=== PATIENT | male | born 1975 | race Caucasian/White ===

== ENCOUNTER 2019-02-15 14:33 | Emergency (ER) | payer BC, MEDICAID ==
[2019-02-15 14:35] VITALS: BMI 25.1
[2019-02-15 14:52] VITALS: TEMP 98
--- NOTE | 2019-02-15 15:15 | ED PDOC ---
Arrival/HPI <Phil Hair - Last Filed: 02/15/19 15:16> - General Historian: Patient - History of Present Illness Narrative History of Present Illness (Text): 18:16 43 y/o male with PMH of alcohol abuse presents to the ED [facility] for evaluation of alcohol intoxication. Pt was reportedly in [employer] [place] [place] when he stumbled and fell to the ground. Admits to alcohol use today. (+) ETOH on breath. Pt arrives agitated and combative, alert. Daughter is in police custody to be picked up by . Pt is not under arrest. Denies any physical complaints. Denies SI/HI/hallucinations, drug use, chest pain, SOB, abdominal pain, or any other associated complaints. HPI and ROS limited by intoxicated state. <Eloise Mccormack - Last Filed: 02/16/19 14:15> - General Chief Complaint: Alcohol Ingestion Time Seen by Provider: 02/15/19 14:36 Past Medical History - Provider Review Nursing Documentation Reviewed: Yes - Infectious Disease Hx of Infectious Diseases: None - Tetanus Immunization Tetanus Immunization: Unknown - Past Medical History Past Medical History: No Previous - Cardiac Hx Cardiac Disorders: No - Pulmonary Hx Respiratory Disorders: No - Neurological Hx Migraine: Yes - HEENT Hx HEENT Disorder: No - Renal Hx Renal Disorder: No - Endocrine/Metabolic Other/Comment: BORDERLINE DM, not officially dx - Hematological/Oncological Hx Blood Disorders: No - Integumentary Hx Dermatological Disorder: No - Musculoskeletal/Rheumatological Hx Musculoskeletal Disorders: Yes Hx Back Pain: Yes - Gastrointestinal Hx Gastrointestinal Disorders: No - Genitourinary/Gynecological Hx Genitourinary Disorders: No - Psychiatric Hx Psychophysiologic Disorder: No Hx Depression: No Hx Emotional Abuse: No Hx Physical Abuse: No Hx Substance Use: No - Surgical History Hx Tonsillectomy: Yes - Anesthesia Hx Anesthesia: Yes Hx Anesthesia Reactions: No Hx Malignant Hyperthermia: No - Suicidal Assessment Feels Threatened In Home Enviroment: No <Eloise Mccormack - Last Filed: 02/16/19 14:15> Family/Social History - Physician Review Nursing Documentation Reviewed: Yes Family/Social History: No Known Family HX Smoking Status: Former Smoker Hx Alcohol Use: Yes Hx Substance Use: No Hx Substance Use Treatment: No <Eloise Mccormack - Last Filed: 02/16/19 14:15> Allergies/Home Meds <Phil Hair - Last Filed: 02/15/19 15:16> <Eloise Mccormack - Last Filed: 02/16/19 14:15> Allergies/Adverse Reactions: Allergies No Known Allergies Allergy (Verified 02/15/19 14:36) Review of Systems - Review of Systems Systems not reviewed;Unavailable: Intoxicated Constitutional: Normal. absent: Fevers Eyes: Normal. absent: Vision Changes ENT: Normal. absent: Sore Throat, Sinus Congestion Respiratory: Normal. absent: SOB, Cough Cardiovascular: Normal. absent: Chest Pain, Palpitations Gastrointestinal: Normal. absent: Abdominal Pain, Nausea, Vomiting Genitourinary Male: Normal. absent: Dysuria, Frequency Musculoskeletal: Normal. absent: Back Pain Skin: Normal. absent: Rash Neurological: Normal. absent: Headache, Dizziness <Eloise Mccormack - Last Filed: 02/16/19 14:15> Physical Exam Vital Signs Temp Pulse Resp BP Pulse Ox 02/15/19 14:51 98.0 F 108 H 22 124/78 98 <Phil Hair - Last Filed: 02/15/19 15:16> Vital Signs Reviewed: Yes Vital Signs Temp Pulse Resp BP Pulse Ox 02/15/19 14:51 98.0 F 108 H 22 124/78 98 Temperature: Afebrile Blood Pressure: Normal Pulse: Tachycardic Respiratory Rate: Normal Appearance: Positive for: Well-Appearing, Non-Toxic, Comfortable Pain Distress: None Mental Status: Positive for: other (Intoxicated) - Systems Exam Head: Present: Atraumatic, Normocephalic Pupils: Present: PERRL Extroacular Muscles: Present: EOMI Conjunctiva: Present: Normal Mouth: Present: Moist Mucous Membranes Neck: Present: Normal Range of Motion Respiratory/Chest: Present: Clear to Auscultation, Good Air Exchange. No: Respiratory Distress, Accessory Muscle Use Cardiovascular: Present: Regular Rate and Rhythm, Normal S1, S2, Peripheal Pulses Present Abdomen: No: Tenderness Back: Present: Normal Inspection Upper Extremity: Present: Normal Inspection, Normal ROM Lower Extremity: Present: Normal Inspection, Normal ROM Neurological: Present: Motor Func Grossly Intact Skin: Present: Warm, Dry, Normal Color. No: Rashes Psychiatric: Present: Agitated, Intoxicated. No: Suicidal Ideation, Homicidal Ideation <Eloise Mccormack - Last Filed: 02/16/19 14:15> Medical Decision Making ED Course and Treatment: 02/15/19 15:17 This patients severe and persistent agitated state is preventing me from asses sing the patient to determine if a serious underlying medical condition exists. The patient's behavior is creating an unsafe situation and placing himself, staff, and other patients at risk. The patient is: (+) verbally abusive and threatening to staff; apparently under the influence of an illicit substance(s), uncooperative and unable to comprehend his/her situation or make informed choices regarding his/her own health. Non-pharmacologic approaches, including verbal de-escalation and reducing environmental stimulation, were attempted but unsuccessful. In an attempt to develop a provisional diagnosis of the most likely cause of this patients agitated state, I have categorized the patient's condition as follows: agitation due to intoxication: F[employer] stimulant suspected. Oral pharmacotherapy was offered to the patient in an effort to calm the patient, permit an accurate assessment and allow the patient to participate in his/her own treatment plan, but the patient was uncooperative, refused, and did not consent to oral therapy so the parenteral route was utilized. Patient sedated with haldol and ativan under my supervision. The patient was reassessed by me 15 minutes after medication administration. Patient re-assessed and found to be with resolved agitation, sleeping comfortably, with stable vitals. In summary, pharmacologic intervention targeted at this patients underlying illne ss was successful in alleviating agitation, facilitating an accurate assessment and ensuring safety for the patient, staff and others. - RAD Interpretation Radiology Orders: 02/15/19 15:15 CERVICAL SPINE W/O CONTRAST [CT] Stat HEAD W/O CONTRAST [CT] Stat - Medication Orders Current Medication Orders: Discontinued Medications Haloperidol Lactate (Haldol) 5 mg IM STAT STA; Protocol Stop: 02/15/19 15:12 Lorazepam (Ativan) 2 mg IM ONCE ONE; Protocol Stop: 02/15/19 15:13 <Phil Hair - Last Filed: 02/15/19 15:16> ED Course and Treatment: 15:10 Patient's is here, states she does not want to bring pt home intoxicated. Will obtain bloodwork, EKG, and Head CT. 18:59 CT Head negative for intracranial abnormality CT Cervical spine negative Bloodwork reviewed, mild hypokalemia repleted with KDur, otherwise unremarkable. 19:18 Patient much more alert. States that today was an "isolated incident" Patient to be signed out to night team pending sobriety and re-evaluation. - Lab Interpretations Lab Results: 02/15/19 16:32 02/15/19 16:32 Lab Results 02/15/19 16:32: Alcohol, Quantitative 290 H 02/15/19 16:32: Salicylates < 1 L, Acetaminophen < 10.0 L 02/15/19 16:32: Sodium 141, Potassium 3.4 L, Chloride 102, Carbon Dioxide 22, Anion Gap 20, BUN 13, Creatinine 0.8, Est GFR ( Amer) > 60, Est GFR (Non- Af Amer) > 60, Random Glucose 95, Calcium 9.4, Total Bilirubin 1.3, AST 32, ALT 22, Alkaline Phosphatase 99, Troponin I < 0.01, Total Protein 8.6 H, Albumin 4.8, Globulin 3.8, Albumin/Globulin Ratio 1.3 02/15/19 16:32: PT 12.8 H, INR 1.15, APTT 36.0 02/15/19 16:32: WBC 11.7 H, RBC 5.47, Hgb 15.9, Hct 47.2, MCV 86.3, MCH 29.1, MCHC 33.7, RDW 13.5, Plt Count 259, MPV 9.6, Neut % (Auto) 67.1, Lymph % (Auto) 28.3, Routt % (Auto) 3.9, Eos % (Auto) 0.5 L, Baso % (Auto) 0.2, Lymph # (Auto) 3.3, Routt # (Auto) 0.5, Eos # (Auto) 0.1, Baso # (Auto) 0.02, Absolute Neuts (auto) 7.83 H I have reviewed the lab results: Yes - RAD Interpretation Narrative RAD Interpretations (Text): 02/15/19 19:08 CT Head: FINDINGS: HEMORRHAGE: No intracranial hemorrhage. BRAIN: No mass effect or edema. No atrophy or chronic microvascular ischemic changes. VENTRICLES: Unremarkable. No hydrocephalus. CALVARIUM: Unremarkable. PARANASAL SINUSES: Unremarkable as visualized. No significant inflammatory changes. MASTOID AIR CELLS: Unremarkable as visualized. No inflammatory changes. OTHER FINDINGS: High posterior left parietal scalp contusion. No adjacent calvarial or intracranial detected. IMPRESSION: No acute intracranial abnormalities. No significant findings to account for the clinical presentation. High left parietal scalp contusion. CT Cervical Spine: FINDINGS: VERTEBRAE: No fracture. Normal alignment. No destructive bony lesion. DISCS/SPINAL CANAL/NEURAL FORAMINA: No significant central canal or neural foraminal stenosis. Discs heights are grossly preserved. PARASPINAL SOFT TISSUES: Unremarkable. OTHER FINDINGS: None. IMPRESSION: Unremarkable CT of the cervical spine. Laundry Technician: Radiologist - EKG Interpretation EKG Interpretation (Text): Rate 81; NSR, Prolonged QT; No STEMI; Nonspecific ST/T wave changes Interpreted by ED Physician: Yes Type: 12 lead EKG - Medication Orders Current Medication Orders: Discontinued Medications Ziprasidone (Geodon Inj) 20 mg IM STAT STA; Protocol Stop: 02/15/19 14:52 - Transfer of Care Patient signed out to Dr:: Nate Other: Clinical Sobriety, Reassessment and Disposition <Eloise Mccormack - Last Filed: 02/16/19 14:15> Disposition/Present on Arrival <Phil Hair - Last Filed: 02/15/19 15:16> - Present on Arrival Any Indicators Present on Arrival: No History of DVT/PE: No History of Uncontrolled Diabetes: No Urinary Catheter: No History of Decub. Ulcer: No History Surgical Site Infection Following: None - Disposition Have Diagnosis and Disposition been Completed?: No Disposition Time: 20:00 <Eloise Mccormack - Last Filed: 02/16/19 14:15> - Disposition Diagnosis: Alcohol abuse, Fall Condition: STABLE
[2019-02-15 16:47] LABS: ACETAMINOPHEN < 10.0 ug/ml (10.0-20.0); SALICYLATE < 1 mg/dL (2.0-20.0)
[2019-02-15 16:48] LABS: ALB/GLOB RATIO 1.3 (1.1-1.8); ALBUMIN 4.8 g/dL (3.0-4.8); ALT/SGPT 22 U/L (7-56); AST/SGOT 32 U/L (17-59); BLOOD UREA NITROGEN 13 mg/dL (7-21); CALCIUM 9.4 mg/dL (8.4-10.5); GFR NON-AFRICAN AMERICAN > 60
[2019-02-15 16:59] LABS: TROPONIN I < 0.01 ng/mL
[2019-02-15 17:18] LABS: BASO # 0.02 K/mm3 (0.0-2.0); BASO % 0.2 % (0.0-3.0); EOS # 0.1 (0.0-0.7); EOS % 0.5 % (1.5-5.0); HEMOGLOBIN 15.9 g/dL (14.0-18.0); LYMPH # 3.3 (1.2-3.4); LYMPH % 28.3 % (22.0-35.0); MEAN CELL VOLUME 86.3 fl (80.0-105.0); MEAN CORPUSCULAR HEMOGLOBIN 29.1 pg (25.0-35.0); MEAN CORPUSCULAR HGB CONC 33.7 g/dl (31.0-37.0); MEAN PLATELET VOLUME 9.6 fl (7.0-11.0); MONO # 0.5 (0.1-0.6); MONO % 3.9 % (1.0-6.0); RBC 5.47 10^6/uL (3.5-6.1); RED CELL DISTRIBUTION WIDTH 13.5 % (11.5-14.5); WHITE BLOOD COUNT 11.7 10^3/uL (4.5-11.0)
[2019-02-15 17:22] LABS: INR 1.15; PROTHROMBIN TIME 12.8 SECONDS (9.4-12.5)
--- NOTE | 2019-02-15 18:58 | CT ---
Date of service: 02/15/2019 PROCEDURE: CT HEAD WITHOUT CONTRAST. HISTORY: headache COMPARISON: None available. TECHNIQUE: Axial computed tomography images were obtained through the head/brain without intravenous contrast. Supplemental Coronal and Sagittal projections created and reviewed. Radiation dose: Total exam DLP = 900.96 MGy-cm. This CT exam was performed using one or more of the following dose reduction techniques: Automated exposure control, adjustment of the mA and/or kV according to patient size, and/or use of iterative reconstruction technique. FINDINGS: HEMORRHAGE: No intracranial hemorrhage. BRAIN: No mass effect or edema. No atrophy or chronic microvascular ischemic changes. VENTRICLES: Unremarkable. No hydrocephalus. CALVARIUM: Unremarkable. PARANASAL SINUSES: Unremarkable as visualized. No significant inflammatory changes. MASTOID AIR CELLS: Unremarkable as visualized. No inflammatory changes. OTHER FINDINGS: High posterior left parietal scalp contusion. No adjacent calvarial or intracranial detected. IMPRESSION: No acute intracranial abnormalities. No significant findings to account for the clinical presentation. High left parietal scalp contusion.
--- NOTE | 2019-02-15 19:01 | CT ---
Date of service: 02/15/2019 PROCEDURE: CT Cervical Spine without contrast HISTORY: neck pain COMPARISON: None available. TECHNIQUE: Axial computed tomography images were obtained of the cervical spine without the use of intravenous contrast. Coronal and sagittal reformatted images were created and reviewed. Radiation dose: Total exam DLP = 586.8 mGy-cm. This CT exam was performed using one or more of the following dose reduction techniques: Automated exposure control, adjustment of the mA and/or kV according to patient size, and/or use of iterative reconstruction technique. FINDINGS: VERTEBRAE: No fracture. Normal alignment. No destructive bony lesion. DISCS/SPINAL CANAL/NEURAL FORAMINA: No significant central canal or neural foraminal stenosis. Discs heights are grossly preserved. PARASPINAL SOFT TISSUES: Unremarkable. OTHER FINDINGS: None. IMPRESSION: Unremarkable CT of the cervical spine.
[2019-02-15] MEDS ORDERED: Potassium Chloride 20 mEq ER Tab PO STA (19:30)
[2019-02-15 21:06] VITALS: O2SAT 99
[2019-02-16 01:41] VITALS: BP 124/86; PULSE 86; RESP 16
--- NOTE | 2019-02-16 17:01 | CARD ---
APPROVED REPORT Date of service: 02/15/2019 EKG Measurement Heart [id number] <Conclusion> Normal sinus rhythm Normal Electrocardiogram
== END 2019-02-16 01:41 | disposition home or self-care (01) ==
LOC: ED 14:33
DX: F10.10 Alcohol abuse, uncomplicated (principal); Y90.8 Blood alcohol level of 240 mg/100 ml or more; W01.0XXA Fall on same level from slipping, tripping and stumbling without subsequent striking against object, initial encounter; Y92.512 Supermarket, store or market as the place of occurrence of the external cause
CPT/HCPCS: 70450; 72125; 80053; 80320; 80329; 84484; 85025; 85610; 85730; 93005; 96372; 99285; J1630; J2060